=== PATIENT | female | born 1935 ===

== ENCOUNTER 2018-02-04 07:46 | Outpatient (CLI) | payer OTHER ==
[~2018-02-04] VITALS: Ht 152.4 cm; Wt 61.2 kg
== END 2018-02-04 08:00 | disposition home or self-care (01) ==
LOC: OFIC 805 07:46
DX: E04.1 Nontoxic single thyroid nodule (principal); H90.3 Sensorineural hearing loss, bilateral; J31.2 Chronic pharyngitis; J31.0 Chronic rhinitis; J34.2 Deviated nasal septum

== ENCOUNTER 2018-02-09 15:00 | Outpatient (CLI) | payer OTHER | END 2018-02-09 15:01 | disposition home or self-care (01) | LOC: TOM 15:00 | DX: R22.1 Localized swelling, mass and lump, neck (principal); E04.1 Nontoxic single thyroid nodule | CPT/HCPCS: 70491; Q9965 ==

== ENCOUNTER 2018-02-23 07:59 | Outpatient (CLI) | payer OTHER ==
[~2018-02-23] VITALS: Ht 165.1 cm; Wt 61.2 kg
== END 2018-02-23 08:15 | disposition home or self-care (01) ==
LOC: OFIC 805 07:59
DX: E04.1 Nontoxic single thyroid nodule (principal); H90.3 Sensorineural hearing loss, bilateral; J31.0 Chronic rhinitis; J37.0 Chronic laryngitis; J34.2 Deviated nasal septum

== ENCOUNTER 2018-08-09 08:49 | Outpatient (CLI) | payer OTHER | END 2018-08-09 08:50 | disposition home or self-care (01) | LOC: SONOGRAMA 08:49 | DX: E04.1 Nontoxic single thyroid nodule (principal) ==

== ENCOUNTER 2018-09-15 09:43 | Outpatient (CLI) | payer OTHER ==
[~2018-09-15] VITALS: Ht 152.4 cm; Wt 61.2 kg
== END 2018-09-15 10:00 | disposition home or self-care (01) ==
LOC: OFIC 805 09:43
DX: E04.1 Nontoxic single thyroid nodule (principal)

== ENCOUNTER 2019-03-13 09:40 | Outpatient (CLI) | payer OTHER ==
[~2019-03-13] VITALS: Ht 152.4 cm; Wt 63.5 kg
== END 2019-03-13 10:00 | disposition home or self-care (01) ==
LOC: OFIC 805 09:40
DX: R13.19 Other dysphagia (principal); K21.0 Gastro-esophageal reflux disease with esophagitis

== ENCOUNTER → 2019-03-14 | Outpatient (CLI) | payer OTHER | END | disposition home or self-care (01) | LOC: SONOGRAMA 09:55 → MAMO-SONO 10:15 | DX: E04.8 Other specified nontoxic goiter (principal) ==

== ENCOUNTER 2019-05-26 08:19 | Outpatient (CLI) | payer OTHER ==
[~2019-05-26] VITALS: Ht 152.4 cm; Wt 61.2 kg
== END 2019-05-26 15:19 | disposition home or self-care (01) ==
LOC: OFIC 805 08:19
DX: E04.1 Nontoxic single thyroid nodule (principal); H90.3 Sensorineural hearing loss, bilateral; J31.2 Chronic pharyngitis; J31.0 Chronic rhinitis; J34.2 Deviated nasal septum; J37.0 Chronic laryngitis; K21.0 Gastro-esophageal reflux disease with esophagitis; R13.19 Other dysphagia; H61.23 Impacted cerumen, bilateral